=== PATIENT | female | born 1955 | race Caucasian/White ===

== ENCOUNTER → 2019-07-08 | Outpatient (CLI) | payer BC ==
[2019-07-08 15:08] LABS: HCT 43.4 % (34.0-46.0); HGB 13.9 gm/dL (11.4-16.0); MCH 26.5 pg (25.0-35.0); MCHC 31.9 g/dL (31.0-37.0); MCV 82.9 fL (80.0-100.0); Mean Platelet Volume 7.8; Platelet Count 316 k/uL (150-450); RBC 5.24 m/uL (3.80-5.40); WBC 9.3 k/uL (3.8-10.6)
[2019-07-08 15:14] LABS: Appearance,Urine Clear (Clear); Bilirubin,Urine 2+ (Negative); Blood,Urine Negative (Negative); Color,Urine Yellow; Glucose,Urine (UA) Negative (Negative); Ketones,Urine Negative (Negative); Leukocyte Esterase,Urine Large (Negative); Mucus,Urine Rare /hpf; Nitrite,Urine Negative (Negative); PH, Urine 5.5 (5.0-8.0); Protein,Urine Negative (Negative); RBC,Urine 1 /hpf (0-5); Specific Gravity,Urine 1.019 (1.001-1.035); Squamous Epithelial Cell,Urine 1 /hpf (0-4); Urobilinogen,Urine <2.0 mg/dL (<2.0); WBC,Urine 48 /hpf (0-5)
[2019-07-08 15:17] LABS: INR 0.9 (<1.2); Partial Thromboplastin Time 22.7 sec (22.0-30.0); Prothrombin Time 9.7 sec (9.0-12.0)
[2019-07-08 15:21] LABS: ALT 29 U/L (9-52); AST 18 U/L (14-36); African American GFR (CKD) >90 (>60 ml/min/1.73 sqM); Albumin 4.5 g/dL (3.5-5.0); Alkaline Phosphatase 75 U/L (38-126); Anion Gap 10 mmol/L; Blood Urea Nitrogen 32 mg/dL (7-17); Calcium 11.9 mg/dL (8.4-10.2); Carbon Dioxide 28 mmol/L (22-30); Chloride 104 mmol/L (98-107); Glucose 125 mg/dL (74-99); Non-African American GFR(CKD) 84 (>60 ml/min/1.73 sqM); Potassium 4.1 mmol/L (3.5-5.1); Sodium 142 mmol/L (137-145); Total Bilirubin 0.4 mg/dL (0.2-1.3); Total Protein 7.3 g/dL (6.3-8.2)
[2019-07-10 21:13] LABS: Cholesterol 200 mg/dL (<200); HDL Cholesterol 41 mg/dL (40-60); LDL Cholesterol,Calculated 105 mg/dL (0-99); Triglycerides 271 mg/dL (<150)
[2019-07-11 04:01] LABS: Hemoglobin A1C 6.5 % (4.0-6.0)
== END | disposition home or self-care (01) ==
LOC: LABWHC1 14:26
PROVIDERS: ATTEND Orthopaedic Surgery
DX: Z01.812 Encounter for preprocedural laboratory examination (principal); Z01.818 Encounter for other preprocedural examination
CPT/HCPCS: 80053; 80061; 81001; 83036; 85027; 85610; 85730; 87070

== ENCOUNTER 2019-08-04 06:11 | Day surgery (SDC) | payer BC ==
[2019-07-28 18:10] VITALS: BMI 43.9
[~2019-08-04 06:11] MED LIST: ACETAMINOPHEN TAB 500 MG TAB PO ONE; DEXAMETHASONE SOD PHOSPHATE 10 MG/ML 1 ML VIAL IV ONE; LIDOCAINE 1% 20 ML VIAL (10MG/ML) FOR IV START INTRADERMA PRN; MELOXICAM 7.5 MG TAB PO ONE; MIDAZOLAM 2 MG/2 ML VIAL IV PRN; ONDANSETRON 4 MG/2 ML VIAL IVP ONE; TRANEXAMIC ACID 1,000 MG in SODIUM CHLORIDE 0.9% 100 ML IVPB ONE
[2019-08-04] MEDS: LACTATED RINGERS 1,000 ML IV SCH ×2 (07:06→23:39)
[2019-08-04 07:18] LABS: Glucose,Whole Blood 118 mg/dL (75-99)
[2019-08-04] MEDS ORDERED: ROPIVACAINE 246.25 MG, EPINEPHrine 0.5 MG, KETOROLAC 30 MG, cloNIDine HCL/PF 80 MCG, WA... MISCELLANE ONE ×5 (07:22)
[2019-08-04] MEDS ORDERED: TRANEXAMIC ACID 1,000 MG/10 ML VIAL ONE (07:53)
[2019-08-04] MEDS ORDERED: fentaNYL (PF) 50 MCG/ML 2 ML AMP ONE (07:53)
[2019-08-04] MEDS ORDERED: diphenhydrAMINE 50 MG/ML 1 ML VIAL ONE (07:53)
[2019-08-04] MEDS ORDERED: MIDAZOLAM 2 MG/2 ML VIAL ONE (07:53)
[2019-08-04] MEDS ORDERED: PROPOFOL 10 MG/ML 20 ML VIAL IV ONE (07:53)
[2019-08-04] MEDS ORDERED: SODIUM CHLORIDE 0.9% 100 ML BAG ONE (07:53)
[2019-08-04] MEDS ORDERED: ceFAZolin 3,000 MG in SODIUM CHLORIDE 0.9% IRRIGATIO 3,000 ML IRRIGATION ONE (08:03)
[2019-08-04] MEDS ORDERED: ROPIVACAINE 0.2%-NS ON-Q PUMP 1,090 MG, EMPTY PAIN BALL 1 EACH MISCELLANE PRN (09:10)
--- NOTE | 2019-08-04 09:10 | P.ANPRN ---
Procedure Note - Anesthesia - Nerve Block Performed Left Adductor Canal Infusion Time Out Performed: Yes Date of Procedure: 08/04/19 Procedure Start Time: : Procedure Stop Time: : Location of Patient Procedure: PreOp Indication: Acute Post-Operative Pain, Requested by Surgeon Sedation Type: Sedate with meaningful contact maintained Preparation: Sterile Prep, Sterile Dressing Position: Supine Catheter: Indwelling Needle Types: Pajunk Needle Gauge: 18 Ultrasound used to visualize needle placement: Yes Ultrasound used to observe medication spread: Yes Injectate: 0.5% Ropivacaine (see comment for volume) (20 ml) Blood Aspirated: No Pain Paresthesia on Injection Noted: No Resistance on Injection: Normal Image Stored and Saved: Yes Events: Uneventful and Well Tolerated
--- NOTE | 2019-08-04 09:45 | P.OP ---
Date of Procedure: 08/04/19 Procedure(s) Performed: PREOPERATIVE DIAGNOSIS: Left knee severe osteoarthritis with genu varum POSTOPERATIVE DIAGNOSIS: Left knee severe osteoarthritis with genu varum OPERATION: Left knee cemented total replacement arthroplasty. ANESTHESIA: Spinal ESTIMATED BLOOD LOSS: 50 ml. CREATIVE RESOURCE MANAGER: Yasmin Miller PA-C (assistance with: patient positioning, retraction, exposure, hemostasis, leg positioning, implantation, irrigation, closure, dressing) COMPLICATIONS: None apparent. COMPONENTS IMPLANTED: Journey II [facility] INDICATIONS: Mrs. Murphy is a 63 year old female with a history of left knee osteoarthritis. The patient's knee is end-stage, and conservative management has failed. The operation of knee replacement has been discussed at length in the office, as well as potential risks and complications. These are inclusive of, but not limited to: bleeding, infection, scarring, discomfort, blood vessel and nerve damage, need for further surgery, failure to relieve symptoms, persistence, recurrence, or worsening of problems, loosening, dislocation, wear, blood clot, pulmonary embolism, , gait dysfunction, stiffness, and other risks as discussed in the office. The patient elects to proceed and the consent form has been signed. PROCEDURE: The patient was taken to the operating room and positioned on the operating room table in the supine position. Anesthesia was initiated. Care was taken to make sure that all pressure points were adequately padded. The operative lower extremity was prepped and draped in the usual aseptic fashion using ChloraPrep. Ioban drape was used for the case and the patient received intravenous antibiotics within one hour of the incision. A pneumotourniquet and leg galeana were used for the case. The limb was exsanguinated with an Esmarch bandage and the tourniquet was inflated to 350 mmHg. Time-out was called confirming the patient's identity, side, procedure and administration of antibiotics and tranexamic acid. The incision was then created midline directly over the left knee, carried down through skin and into the subcutaneous tissues and down to fascia. Full thickness subcutaneous medial flap was developed. Medial parapatellar arthrotomy was performed and the interior of the knee was inspected. There was end-stage osteoarthritis of the knee with a mild to moderate genu varum type deformity. The fat pad was excised and proximal medial release on the tibia was completed using meticulous dissection and a curved osteotome. The anterior cruciate ligament was taken down. Note was made of significant attrition of the anterior and significant degenerative appearance of the cruciate ligaments. The exposure was excellent. The knee was flexed 90 degrees and the patella was everted. The [employer] pre- made distal cutting block was attached and pinned into position. The planned cut was analyzed visually and found to be satisfactory without the need for any adjustment. The oscillating saw was then used to make the distal femoral cut. This cut was confirmed to be flat with the flat end of an osteotome. The retractors were placed around the tibia and the tibial surface was addressed. The [employer] pre-made guide was placed onto the exposed tibial surface and pinned into position to javier the rotational alignment. The alignment of the guide was checked for depth of plannned resection, slope, and varus valgus. Guide was confirmed to be in good position and the tibial cut was then created with protection of the posterior neurovascular structures and the collateral ligaments. The tibial cut surface was removed and sized. Femoral sizing was then accomplished using posterior referencing. Care was taken to analyze the posterior condyles for signs of deficiency or severe wear, and adjustments to the guide were made, as appropriate. 3 degree external rotation pins were placed relative to Hardin's line. The cutting jig for the femur was applied to these pins. The planned cuts were further analyzed prior to performing them with the oscillating saw. No femoral notching was produced. Bone fragments were removed and the cut surfaces were finished, as necessary, with a reciprocating saw. Spacer block technique was then used to confirm that the flexion and extension gaps were equal. Soft tissue releases and adjustment of the tibial and/or femoral cuts were made, as necessary, until the gaps were equal. This included release of the posterior cruciate ligament, which was excessively tight in this patient. The femur was then further finished for a posterior cruciate ligament substituting component. Patellar resurfacing was performed using a reamer. The size of the required patellar component was estimated and the patellar surface was then reamed down to a residual thickness which would recreate the [place] thickness with the component. The exact placement of the patellar component was adjusted for position based on preoperative x-rays and intraoperative findings. Prior to placing trial components, anesthetic solution consisting of ropivicaine with epinephrine, ketorolac, and clonidine was injected carefully and methodically in a grid pattern using aspiration technique into the soft tissue around the knee circumferentially, starting with the deeper tissues first and progressing to fascia, and then finally the skin/subcutaneous tissue. Particular care was taken when injecting the posterior capsule. The trial components were inserted. The tibial tray was allowed to self center and the patella was noted to track very well. The position of the tibial component was marked and noted to be nearly exactly aligned with the pre-drilled holes from the [employer] guide. The tibia was then finished for a stemmed tibial component. Cement was mixed on the back table and applied to the final components. Trial components were removed and the cut surfaces of the bone were pulse lavaged thoroughly and dried. Cement was then applied to the tibial surface and pressurized into the surface using finger pressurization technique. The tibial component was then applied and excess cement was removed after it was impacted securely and noted to be flush with the cut surface. In similar fashion, the cement was applied to the cut femoral surface, pressurized in using finger pressurization and the component was impacted into place. Excess cement was removed. The polyethylene spacer was then implanted and locked into position. The patellar component was then applied in similar technique and a patellar clamp was used to hold the patella in place as the cement hardened. Once the cement had fully hardened, the knee was reinspected. Any other cement extrusion was removed and final kinematic testing showed range of motion from 0 to 130 degrees with excellent stability, both medially and laterally and appropriate alignment of the leg. Patellar tracking was excellent. The knee was then thoroughly pulse lavaged with normal saline. The tourniquet was deflated and hemostasis was obtained with electrocautery and IV tranexamic acid, 1 g given at the start of the operation and 1 g at the start of closure. Closure was with #2 Ethibond in the fascia/capsule and supplemented with #2 Quill, 2-0 Vicryl suture was used for the subcutaneous tissues and 3-0 Quill for the skin. Dermabond/Steri-Strips were then applied. A lightly compressive dressing was applied using Webril and an Silver wrap. The patient was then transferred to stretcher and taken to the recovery room in stable condition. Sponge and needle counts were correct.
[2019-08-04] MEDS ORDERED: MAGNESIUM HYDROXIDE 2,400 MG/10 ML CUP PO PRN (10:26)
[2019-08-04] MEDS ORDERED: NALOXONE 0.4 MG/ML 1 ML VIAL IV PRN (10:26)
[2019-08-04] MEDS ORDERED: HYDROmorphone 0.5 MG/0.5 ML SYRINGE IVP PRN ×2 (10:26)
[2019-08-04] MEDS ORDERED: HYDROmorphone 1 MG/ML 1 ML SYRINGE IVP PRN (10:26)
[2019-08-04] MEDS ORDERED: TEMAZEPAM 15 MG CAP PO PRN (10:26)
[2019-08-04] MEDS ORDERED: BISACODYL 10 MG SUPP RECTAL PRN (10:26)
[2019-08-04] MEDS ORDERED: ONDANSETRON 4 MG/2 ML VIAL IVP PRN (10:26)
[2019-08-04] MEDS ORDERED: HYDROcodone/APAP 5-325MG 1 EACH TAB PO PRN (10:26)
[2019-08-04] MEDS ORDERED: NA PHOS,M-B/NA PHOS,DI-BA 133 ML ENEMA RECTAL PRN (10:26)
[2019-08-04 10:44] VITALS: RESP 16
--- NOTE | 2019-08-04 11:00 | XR ---
EXAMINATION TYPE: XR knee limited LT DATE OF EXAM: 08/04/2019 COMPARISON: NONE HISTORY: 63-year-old female evaluation for postop abnormality and alignment TECHNIQUE: 2 views FINDINGS: Images show placement of left total knee arthroplasty. Both distal femoral and proximal tibial compon ents of the prosthesis are well seated without periprosthetic fracture. Alignment grossly anatomic. A nterior soft tissue swelling with scattered soft tissue air as well as intra-articular air and joint effusion compatible with recent operation. IMPRESSION: Uncomplicated postoperative appearance left total knee arthroplasty.
[2019-08-04 11:07] LABS: Glucose,Whole Blood 146 mg/dL (75-99)
[2019-08-04] MEDS: HYDROmorphone 0.5 MG/0.5 ML SYRINGE IVP PRN ×3 (11:45→16:21)
[2019-08-04] MEDS ORDERED: ALBUTEROL INHALER 60 PUFF/8 GM INHALER INHALATION PRN (14:52)
[2019-08-04 16:20] LABS: Glucose,Whole Blood 151 mg/dL (75-99)
[2019-08-04] MEDS: metFORMIN 500 MG TAB PO SCH (16:20)
[2019-08-04] MEDS: INSULIN ASPART (NovoLOG) 100 UNIT/ML VIAL SQ SCH ×2 (16:24→21:13)
[2019-08-04] MEDS: ALBUTEROL NEBULIZED 2.5 MG/3 ML INHALATION PRN (20:01)
[2019-08-04] MEDS: SYMBICORT 80-4.5 MCG INHALER INHALATION SCH (20:01)
[2019-08-04] MEDS: ASPIRIN 325 MG TAB PO SCH (20:53)
[2019-08-04] MEDS ORDERED: DULoxetine HCL 60 MG CAPSULE.DR PO SCH (21:00)
[2019-08-04] MEDS ORDERED: LORATADINE-PSEUDOEPH 5-120 MG 1 EACH TAB.ER.12H PO PRN (21:00)
[2019-08-04] MEDS ORDERED: SENNOSIDES-DOCUSATE SODIUM 1 EACH TAB PO SCH (21:00)
[2019-08-04] MEDS ORDERED: INSULIN DETEMIR (LEVEMIR) 100 UNIT/ML SYR SQ SCH (21:00)
[2019-08-04] MEDS ORDERED: LISINOPRIL 20 MG TAB PO SCH (21:00)
[2019-08-04] MEDS ORDERED: PRAVASTATIN SODIUM 20 MG TAB PO SCH (21:00)
[2019-08-04 21:05] LABS: Glucose,Whole Blood 175 mg/dL (75-99)
--- NOTE | 2019-08-04 23:20 | CONS ---
CONSULTATION REASON FOR CONSULTATION: Diabetes, multiple medical issues requested by Dr. Gill. HISTORY OF PRESENT ILLNESS: This 63-year-old woman with a past medical history of asthma, diabetes, GERD, hypertension, hyperlipidemia, history of DJD, being followed by Dr. Yolanda Gracia in the outpatient setting underwent left knee cemented total replacement arthroplasty by Dr. Gill. There is no history of chest pain. No palpitation, no headache, loss of consciousness, nausea, diarrhea, fever, rigors, chills at this time. PAST MEDICAL HISTORY: History of asthma, diabetes, GERD, hypertension, hyperlipidemia, history of DJD, history of section, cholecystectomy. MEDICATIONS: Prior to admission home medications are: 1. Glucophage 1000 mg p.o. b.i.d. 2. Vitamin B12 1 p.o. daily. 3. Dyazide 37.2/25 mg p.o. daily. 4. Pravachol 20 mg q.h.s. 5. K-Tab ER 10 mg p.o. daily. 6. Prilosec 20 mg p.o. b.i.d. 7. Singulair 10 mg p.o. daily. 8. Provigil 200 mg p.o. q.a.m. 9. Zestril 20 mg p.o. q.h.s. 10.Victoza 2 pack 1.8 subcu daily. 11.Lantus 49 units subcu q.h.s. 12.Advair 250/50 one puff b.i.d. 13.Melida-D 24 1 p.o. b.i.d. 14.Iron sulfate 320 mg p.o. daily. 15.Lodine 400 mg p.o. b.i.d. 16.Cymbalta 60 mg p.o. q.h.s. 17.Cinnamon 1.2 mg p.o. daily. 18.Aspirin 81 mg. 19.Ventolin 2.5 q.4 p.r.n. 20.Ventolin 1-2 puffs q.6h p.r.n. 21.Senokot-S 1 tablet p.o. b.i.d. 22.Hatch 5 mg 1 tablets q.4h 6 p.r.n. 23.Aspirin 320 mg p.o. b.i.d. ALLERGIES: DEMEROL and ULTRAM. FAMILY HISTORY: History of lung cancer in the family. SOCIAL HISTORY: No history of smoking. No history of alcohol intake. REVIEW OF SYSTEMS: ENT: No diminished vision. CARDIOVASCULAR: No angina. No palpitations. RESPIRATION: No cough or hemoptysis, otherwise as mentioned earlier. GI no nausea or vomiting. no dysuria. NERVOUS SYSTEM: No numbness or weakness. ALLERGY/IMMUNOLOGY: As mentioned earlier. HEMATOLOGY: No history of anemia. ENDOCRINE: As mentioned earlier. CONSTITUTIONAL: As mentioned earlier. DERMATOLOGY negative. RHEUMATOLOGY: Negative. MUSCULOSKELETAL: As mentioned earlier. PSYCHIATRY as mentioned earlier. PHYSICAL EXAMINATION: Alert and oriented times three. Pulse is 98. Blood pressure 120/82. Respirations 16, temperature is 97.9, pulse ox 94% on room air. HEENT: Conjunctivae normal. Oral mucosa moist. NECK is no jugular venous distention. No carotid bruit. No lymph node enlargement. CARDIOVASCULAR systems: S1, S2 muffled. RESPIRATION: Breath sounds diminished in the bases. No rhonchi. No crackles. ABDOMEN: Soft, nontender. No mass palpable. LEGS no edema. No swelling. NERVOUS SYSTEM: Higher functions as mentioned earlier. Moves all four extremities. No focal deficits. LYMPHATICS: No lymph nodes palpable in the neck, axillae or groin. SKIN: No ulcer, rash or bleeding. JOINTS: No active deforming arthropathy. LEGS status post knee arthroplasty. LABS: Glucose 151. Otherwise, CBC noted. Coags are noted. Chemistry shows glucose 125, calcium 7.9, hemoglobin A1c is 6.5, and triglycerides elevated. ASSESSMENT: 1. Status post left total knee joint arthroplasty. 2. History of asthma. 3. Diabetes mellitus type 2. 4. Gastroesophageal reflux disease. 5. Hypertension. 6. Hyperlipidemia. 7. Chronic liver disease. 8. Degenerative joint disease. 9. History of sleep apnea. 10.History of enlarged liver. 11.History of narcolepsy. 12.History of depression. 13.Hyperlipidemia on the previous labs. 14.Hypercalcemia on the previous labs. RECOMMENDATIONS AND DISCUSSION: In this 63-year-old woman who presented with multiple medical issues, at this time, I would recommend to continue current medications, management and symptomatic treatment. Otherwise at this time, DVT prophylaxis. Resume the home medications. Monitor blood sugars closely. Otherwise, I would also recommend repeat labs in the morning. Otherwise, we will follow the patient closely with you. The patient may be asked to follow up with primary physician in the outpatient setting. Thank you Dr. Gill for letting us participate in the care of this patient. MMODL / IJN: [id number] /
[2019-08-05 07:00] LABS: Glucose,Whole Blood 87 mg/dL (75-99)
[2019-08-05] MEDS: INSULIN ASPART (NovoLOG) 100 UNIT/ML VIAL SQ SCH ×2 (07:02→12:02)
[2019-08-05 07:04] LABS: African American GFR (CKD) >90 (>60 ml/min/1.73 sqM); Anion Gap 5 mmol/L; Blood Urea Nitrogen 22 mg/dL (7-17); Calcium 10.2 mg/dL (8.4-10.2); Carbon Dioxide 27 mmol/L (22-30); Chloride 106 mmol/L (98-107); Glucose 87 mg/dL (74-99); Potassium 3.8 mmol/L (3.5-5.1); Sodium 138 mmol/L (137-145)
[2019-08-05] MEDS: metFORMIN 500 MG TAB PO SCH (07:13)
[2019-08-05] MEDS: ASPIRIN 325 MG TAB PO SCH (07:13)
[2019-08-05 07:17] VITALS: BP 111/76; TEMP 97.6
[2019-08-05 07:25] LABS: Basophils # (A) 0.1 k/uL (0-0.2); Basophils % (A) 1 %; Eosinophils # (A) 0.1 k/uL (0-0.7); Eosinophils % (A) 1 %; HCT 33.3 % (34.0-46.0); Lymphocytes # (A) 2.1 k/uL (1.0-4.8); Lymphocytes % (A) 24 %; MCH 26.8 pg (25.0-35.0); MCHC 32.4 g/dL (31.0-37.0); MCV 82.6 fL (80.0-100.0); Mean Platelet Volume 7.9; Monocytes # (A) 0.6 k/uL (0-1.0); Monocytes % (A) 7 %; Neutrophils # (A) 5.9 k/uL (1.3-7.7); Neutrophils % (A) 67 %; Platelet Count 260 k/uL (150-450); RBC 4.03 m/uL (3.80-5.40); RDW 14.9 % (11.5-15.5); WBC 8.8 k/uL (3.8-10.6)
[2019-08-05 07:29] LABS: HGB 10.8 gm/dL (11.4-16.0)
--- NOTE | 2019-08-05 08:08 | P.DS ---
Providers Expected date of discharge: 08/05/19 Attending physician: Nick Gill Consults: 08/04/19 10:26 Consult Physician Routine Consulting Provider: Douglas Fleming Consult Reason/Comments: Medical management Do you want consulting provider notified?: Yes Primary care physician: Yolanda Gracia - Discharge Diagnosis(es) (1) Osteoarthritis of left knee Current Visit: Yes Status: Acute (2) Status post total left knee replacement Current Visit: Yes Status: Acute Hospital Course: This is a 63-year-old female who was last seen with complaint of continued left knee pain. The patient has a known history of degenerative arthritis of the left knee and presents to discuss surgical options. After discussion and consideration the patient elects to proceed with total left knee arthroplasty. The patient is seen preoperatively by her primary care physician and cleared for surgery. The patient is admitted to [facility] for total left knee arthroplasty. The procedures performed without complication or sequelae. He is doing well postoperatively. Vital signs are stable at discharge. Labs are stable at discharge. the patient is ambulating well with walker with minimal assistance. The patient is discharged to home on postop day #1 pending medical clearance. Please see orders and refer to the med rec for accurate list of medications. Plan - Discharge Summary Discharge Rx Participant: Yes New Discharge Prescriptions: New Aspirin 325 mg PO BID #1 tab HYDROcodone/APAP 5-325MG [Cactus 5-325] 1 - 2 each PO Q4-6H PRN #50 tab PRN Reason: Pain Sennosides-Docusate Sodium [Senokot-S] 1 tab PO BID #60 tablet No Action Potassium Chloride [K-Tab ER] 10 meq PO DAILY Cinnamon Bark [Cinnamon] 1,200 mg PO DAILY Lisinopril [Zestril] 20 mg PO HS Modafinil [Provigil] 200 mg PO QAM Albuterol Nebulized [Ventolin Nebulized] 2.5 mg INHALATION Q4H PRN PRN Reason: ASTHMA SX DULoxetine HCL [Cymbalta] 60 mg PO HS Etodolac [Lodine] 400 mg PO BID Insulin Glargine,Hum.rec.anlog [Lantus Solostar] 49 unit SQ HS Ferrous Sulfate [Feosol] 325 mg PO DAILY metFORMIN HCL [Glucophage] 1,000 mg PO BID Omeprazole [PriLOSEC] 20 mg PO AC-BID Triamterene-Hctz 37.5-25Mg [Dyazide 37.5-25 Capsule] 1 cap PO DAILY Pravastatin Sodium [Pravachol] 20 mg PO HS Albuterol Inhaler [Ventolin Hfa Inhaler] 1 - 2 puff INHALATION RT-Q6H PRN PRN Reason: Shortness Of Breath Liraglutide [Victoza 2-Jesus] 1.8 mg SQ DAILY Aspirin [Adult Low Dose Aspirin EC] 81 mg PO DAILY Montelukast [Singulair] 10 mg PO DAILY Fluticasone/Salmeterol [Advair 250-50 Diskus] 1 inhalation PO BID Fexofenadine/Pseudoephedrine [Melida-D 24 Hour Tablet] 1 each PO BID Vitamin B-12 (Unknown Dose) 1 tab PO DAILY Discharge Medication List Albuterol Inhaler [Ventolin Hfa Inhaler] 1 - 2 puff INHALATION RT-Q6H PRN 07/28/19 [History] Albuterol Nebulized [Ventolin Nebulized] 2.5 mg INHALATION Q4H PRN 07/28/19 [History] Aspirin [Adult Low Dose Aspirin EC] 81 mg PO DAILY 07/28/19 [History] Cinnamon Bark [Cinnamon] 1,200 mg PO DAILY 07/28/19 [History] DULoxetine HCL [Cymbalta] 60 mg PO HS 07/28/19 [History] Etodolac [Lodine] 400 mg PO BID 07/28/19 [History] Ferrous Sulfate [Feosol] 325 mg PO DAILY 07/28/19 [History] Fexofenadine/Pseudoephedrine [Melida-D 24 Hour Tablet] 1 each PO BID 07/28/19 [History] Fluticasone/Salmeterol [Advair 250-50 Diskus] 1 inhalation PO BID 07/28/19 [History] Insulin Glargine,Hum.rec.anlog [Lantus Solostar] 49 unit SQ HS 07/28/19 [History] Liraglutide [Victoza 2-Jesus] 1.8 mg SQ DAILY 07/28/19 [History] Lisinopril [Zestril] 20 mg PO HS 07/28/19 [History] Modafinil [Provigil] 200 mg PO QAM 07/28/19 [History] Montelukast [Singulair] 10 mg PO DAILY 07/28/19 [History] Omeprazole [PriLOSEC] 20 mg PO AC-BID 07/28/19 [History] Potassium Chloride [K-Tab ER] 10 meq PO DAILY 07/28/19 [History] Pravastatin Sodium [Pravachol] 20 mg PO HS 07/28/19 [History] Triamterene-Hctz 37.5-25Mg [Dyazide 37.5-25 Capsule] 1 cap PO DAILY 07/28/19 [History] Vitamin B-12 (Unknown Dose) 1 tab PO DAILY 07/28/19 [History] metFORMIN HCL [Glucophage] 1,000 mg PO BID 07/28/19 [History] Aspirin 325 mg PO BID #1 tab 08/04/19 [Rx] HYDROcodone/APAP 5-325MG [Cactus 5-325] 1 - 2 each PO Q4-6H PRN #50 tab 08/04/19 [Rx] Sennosides-Docusate Sodium [Senokot-S] 1 tab PO BID #60 tablet 08/04/19 [Rx] Follow up Appointment(s)/Referral(s): Yasmin Miller, PAC [PHYSICIAN MANAGER CHEMICAL] - 2 Weeks Activity/Diet/Wound Care/Special Instructions: May bear weight as tolerated with walker. May shower if no drainage from incision. Discharge Disposition: HOME WITH HOME HEALTH SERVICES
--- NOTE | 2019-08-05 08:08 | P.PN ---
Progress Note - Text Progress Note Date: 08/05/19 Pt w/ some pain posterior knee and outer knee as expected. Ambulating w/o weakness. Taking PO medication for breakthrough pain. VSS L adductor canal catheter site clean and dry A/P POD#1 L TKA w/ adductor canal catheter - doing well
[2019-08-05] MEDS: SYMBICORT 80-4.5 MCG INHALER INHALATION SCH (08:21)
[2019-08-05] MEDS: ALBUTEROL NEBULIZED 2.5 MG/3 ML INHALATION PRN (08:21)
[2019-08-05 08:25] VITALS: PULSE 82
[2019-08-05] MEDS ORDERED: MELOXICAM 7.5 MG TAB PO SCH (09:00)
[2019-08-05] MEDS ORDERED: MONTELUKAST 10 MG TAB PO SCH (09:00)
[2019-08-05] MEDS ORDERED: POTASSIUM CHLORIDE ER 10 MEQ TAB.ER.PRT PO SCH (09:00)
[2019-08-05] MEDS ORDERED: TRIAMTERENE-HCTZ 37.5-25MG 1 EACH CAP PO SCH (09:00)
[2019-08-05] MEDS ORDERED: MODAFINIL 200 MG TAB PO SCH (09:00)
[2019-08-05] MEDS: HYDROcodone/APAP 5-325MG 1 EACH TAB PO PRN ×2 (09:13→13:24)
[2019-08-05 11:44] LABS: Glucose,Whole Blood 78 mg/dL (75-99)
[2019-08-05] MEDS ORDERED: CYANOCOBALAMIN 500 MCG TAB PO SCH (12:00)
--- NOTE | 2019-08-05 16:30 | PN ---
PROGRESS NOTE DATE OF SERVICE: 08/05/2019 This 63-year-old woman who was admitted after left knee arthroplasty is improving significantly. No chest pain. No palpitations. No fever. PHYSICAL EXAMINATION: Alert and oriented x3. Pulse 84, blood pressure 111/76, respiration 16, temperature 97.6, pulse ox 94% on room air. HEENT: Conjunctivae normal. NECK: No jugular venous distention. CARDIOVASCULAR SYSTEM: S1, S2 muffled. RESPIRATORY SYSTEM: Breath sounds diminished at the bases. No rhonchi. No crackles. ABDOMEN: Soft. LEGS: Status post knee arthroplasty. NERVOUS SYSTEM: No focal deficit. LABS: WBC 8.8, hemoglobin 10.8. Sodium 138, potassium 3.8. ASSESSMENT: 1. Status post left total knee joint arthroplasty. 2. History of asthma. 3. Diabetes mellitus, type 2. 4. Gastroesophageal reflux disease. 5. Hypertension. 6. Hyperlipidemia. 7. History of chronic liver disease. 8. History of degenerative joint disease. 9. History of sleep apnea. 10.History of enlarged liver. 11.History of narcolepsy. 12.History of depression. 13.Hyperlipidemia on the previous labs. 14.Hypercalcemia on the previous labs. RECOMMENDATIONS AND DISCUSSION: I recommend to continue current medications, continue with the monitoring, symptomatic treatment. Otherwise at this time Orthopedic Surgery is discharging the patient. I recommend that she closely follow up in the outpatient setting and follow up with primary physician in the outpatient setting. Further recommendations to follow. MMODL / IJN: [id number] /
[2019-08-06] MEDS ORDERED: PANTOPRAZOLE 40 MG TABLET PO SCH (17:30)
== END 2019-08-05 13:55 | disposition home health service (06) ==
LOC: OR 06:11 → 4SSUR 11:54 → OR 08-05 13:55
PROVIDERS: ATTEND Orthopaedic Surgery
DX: M17.12 Unilateral primary osteoarthritis, left knee (principal); M21.162 Varus deformity, not elsewhere classified, left knee; I10 Essential (primary) hypertension; E11.9 Type 2 diabetes mellitus without complications; Z97.3 Presence of spectacles and contact lenses; M19.90 Unspecified osteoarthritis, unspecified site; G47.33 Obstructive sleep apnea (adult) (pediatric); J45.909 Unspecified asthma, uncomplicated; F41.9 Anxiety disorder, unspecified; G47.419 Narcolepsy without cataplexy; Z90.49 Acquired absence of other specified parts of digestive tract; E66.01 Morbid (severe) obesity due to excess calories; Z68.41 Body mass index [BMI] 40.0-44.9, adult; K21.9 Gastro-esophageal reflux disease without esophagitis; E78.5 Hyperlipidemia, unspecified; Z83.3 Family history of diabetes mellitus; Z82.49 Family history of ischemic heart disease and other diseases of the circulatory system; Z98.51 Tubal ligation status; Z79.82 Long term (current) use of aspirin; Z79.4 Long term (current) use of insulin; Z79.1 Long term (current) use of non-steroidal anti-inflammatories (NSAID); Z79.51 Long term (current) use of inhaled steroids; Z79.52 Long term (current) use of systemic steroids; Z79.899 Other long term (current) drug therapy; Z88.5 Allergy status to narcotic agent; Z91.09 Other allergy status, other than to drugs and biological substances; Z91.048 Other nonmedicinal substance allergy status; F32.9 Major depressive disorder, single episode, unspecified
CPT/HCPCS: 94640 ×3; 97116; 97161; 64448; 80048; 85025; 88300; 73560; 27447; C1713; C1776; J2250; J0171; J1200; J1100; J0690 ×2; J2405; J3010; J1885; J2795 ×2; J2704; J0735; J1170

== ENCOUNTER → 2021-01-03 | Outpatient (CLI) | payer BC ==
--- NOTE | 2021-01-04 08:54 | XR ---
EXAMINATION TYPE: XR KUB DATE OF EXAM: 01/03/2021 COMPARISON: None INDICATION: Right-sided pain TECHNIQUE: Single view abdomen supine view FINDINGS: There is a normal bowel gas pattern. Psoas margins are normal. No organomegaly is present. Cholecystectomy clips are in the right upper quadrant. Phleboliths are within the pelvis. Distal righ t ureteral stone cannot be excluded. This would measure 0.2 cm. IMPRESSION: 1. A 0.2 cm distal right ureteral stone is not excluded. 2. Abdomen is otherwise unremarkable
== END | disposition home or self-care (01) ==
LOC: RADXRMAIN 16:19
PROVIDERS: ATTEND Urology
DX: N20.1 Calculus of ureter (principal)
CPT/HCPCS: 74018

== ENCOUNTER → 2023-11-28 | Outpatient (CLI) | payer MEDICARE ==
--- NOTE | 2023-11-30 07:06 | MR ---
EXAMINATION TYPE: MR shoulder RT wo con DATE OF EXAM: 11/28/2023 COMPARISON: Outside right shoulder x-ray November 20, 2023 HISTORY: Right shoulder pain, S/P fall 6 weeks ago. TECHNIQUE: Multiplanar, multisequence imaging of the right shoulder is performed without contrast. FINDINGS: Rotator Cuff: Significant tear of the majority of the supraspinatus tendon, few fibers anteriorly are intact. There is full-thickness retracted tear of the infraspinatus tendon with some retraction note d coronal image 21 to the level of the acromioclavicular joint. Subscapularis tendon is intact. There is mild atrophy of the supraspinatus and more moderate atrophy of the infraspinatus tendon and teres minor tendons. Full-thickness retracted tear of the teres minor is noted. Abnormal fluid at this lev el is noted. Acromioclavicular Joint: Mild/moderate narrowing with more moderate to severe capsular hypertrophy. Glenohumeral Joint: Large joint effusion. Significant narrowing is present. No significant spurring. Labrum: The labrum appears grossly intact given limitation of non-arthrogram study. Biceps Tendon: The long head of biceps is in normal location within bicipital groove. Intracapsular p ortion is not well visualized to the labral anchor, retracted tear is felt present. Bone marrow signal: No focal abnormal marrow signal is appreciated. Other: No additional significant abnormality is appreciated. IMPRESSION: 1. Large joint effusion. Large retracted tears of the rotator cuff. There is suspected retracted tear of the long head of biceps tendon. Underlying instability is suspected.
== END | disposition home or self-care (01) ==
LOC: RADMRIMAIN 15:23
PROVIDERS: ATTEND Orthopaedic Surgery
DX: M25.411 Effusion, right shoulder (principal); M75.111 Incomplete rotator cuff tear or rupture of right shoulder, not specified as traumatic